=== PATIENT | male | born 1970 ===

== ENCOUNTER 2019-04-14 08:30 | Emergency (ER) | payer BC ==
[2019-04-14] MEDS ORDERED: Ketorolac 60 MG/2 ML SDV IM ONE (09:07)
--- NOTE | 2019-04-14 09:10 | EDM.PDOC ---
ED HPI GENERAL MEDICAL PROBLEM - General Chief Complaint: Back Pain or Injury Stated Complaint: CHEST PAIN/LOWER BACK PAIN Time Seen by Provider: 04/14/19 08:55 - History of Present Illness INITIAL COMMENTS - FREE TEXT/NARRATIVE: HISTORY AND PHYSICAL: History of present illness: Patient 49-year-old white male history of chronic back pain his head spinal surgery prior presents with concern of back pain with associated spasm he states at times it hurts to take a deep breath due to the spasm and pain of his back. He denies numbness weakness incontinence or retention bowel or bladder Review of systems: As per history of present illness and below otherwise all systems reviewed and negative. Past medical history: As per history of present illness and as reviewed below otherwise noncontributory. Surgical history: As per history of present illness and as reviewed below otherwise noncontributory. Social history: No reported history of drug or alcohol abuse. Family history: As per history of present illness and as reviewed below otherwise noncontributory. Physical exam: HEENT: Atraumatic, normocephalic, pupils reactive, negative for conjunctival pallor or scleral icterus, mucous membranes moist, throat clear, neck supple, nontender, trachea midline. Lungs: Clear to auscultation, breath sounds equal bilaterally, chest nontender. Heart: S1S2, regular, negative for clicks, rubs, or JVD. Abdomen: Soft, nondistended, nontender. Negative for masses or hepatosplenomegaly. Negative for costovertebral tenderness. Pelvis: Stable nontender. Genitourinary: Deferred. Rectal: Deferred. Extremities: Atraumatic, negative for cords or calf pain. Neurovascular unremarkable. Neuro: Awake, alert, oriented. Cranial nerves II through XII unremarkable. Cerebellum unremarkable. Motor and sensory unremarkable throughout. Exam nonfocal. Back: Patient is a mild paravertebral tenderness and spasm the region of the lumbar spine is no vertebral body or point tenderness motor and sensory are normal deep tendon reflexes are normal Diagnostics: Chest x-ray UA x-ray lumbosacral spine Therapeutics: Toradol 60 mg IM Impression: #1 chronic back pain with acute exacerbation Definitive disposition and diagnosis as appropriate pending reevaluation and review of above. L lower ribs Pain Score (Numeric/FACES): 8 - Related Data Allergies Allergy/AdvReac Type Severity Reaction Status Date / Time codeine Allergy Fainting Verified 12/08/16 13:48 [facility] Home Meds: Home Meds Methocarbamol 750 mg PO Q6H 04/14/19 [History] Zolpidem [Ambien] 1 tab PO DAILY 04/14/19 [History] oxyCODONE HCl [Oxycontin] 20 mg PO TID 04/14/19 [History] Past Medical History Gastrointestinal History: Reports: Other (See Below) Other Gastrointestinal History: Lap band surgery for weight loss Musculoskeletal History: Reports: Back Pain, Chronic Psychiatric History: Reports: Anxiety, Depression - Infectious Disease History Infectious Disease History: Reports: Other (See Below) Other Infectious Disease History: 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 ED EXAM, GENERAL - Physical Exam Exam: See Below (See dictation) Course - Vital Signs Last Recorded V/S: Last Vital Signs Temp 35.8 C 04/14/19 08:42 Pulse 97 04/14/19 08:42 Resp 18 04/14/19 08:42 BP 140/89 04/14/19 08:42 Pulse Ox 98 04/14/19 08:42 - Orders/Labs/Meds Orders: Active Orders 24 hr Category Date Time Status Chest 2V [CR] Stat Exams 04/14/19 08:41 Ordered Lumbar Spine 2 or 3V [CR] Stat Exams 04/14/19 09:06 Ordered UA RFX MUSHTAQ AND CULT IF INDIC [URIN] Stat Lab 04/14/19 08:50 Received Ketorolac [Toradol] Med 04/14/19 09:07 Once 60 mg IM ONETIME ONE Medication Orders Ketorolac Tromethamine (Toradol) 60 mg IM ONETIME ONE Stop: 04/14/19 09:08 Meds: Medications Generic Name Dose Route Start Last Admin Trade Name Freq PRN Reason Stop Dose Admin Ketorolac Tromethamine 60 mg 04/14/19 09:07 Toradol IM 04/14/19 09:08 ONETIME ONE Departure - Departure Time of Disposition: 09:09 Disposition: Home, Self-Care 01 Condition: Good Clinical Impression: Back pain - Discharge Information Referrals: PCP,None [Primary Care Provider] - Additional Instructions: The following information is given to patients seen in the emergency department who are being discharged to home. This information is to outline your options for follow-up care. We provide all patients seen in our emergency department with a follow-up referral. The need for follow-up, as well as the timing and circumstances, are variable depending upon the specifics of your emergency department visit. If you don't have a primary care physician on staff, we will provide you with a referral. We always advise you to contact your personal physician following an emergency department visit to inform them of the circumstance of the visit and for follow-up with them and/or the need for any referrals to a consulting specialist. The emergency department will also refer you to a specialist when appropriate. This referral assures that you have the opportunity for followup care with a specialist. All of these measure are taken in an effort to provide you with optimal care, which includes your followup. Under all circumstances we always encourage you to contact your private physician who remains a resource for coordinating your care. When calling for followup care, please make the office aware that this follow-up is from your recent emergency room visit. If for any reason you are refused follow-up, please contact the [facility] emergency department at and asked to speak to the emergency department charge nurse. [facility] [address] [place] [id number] Diclofenac Flexeril Medrol as prescribed follow-up clinic above: Schedule routine appointment and return as needed as discussed - My Orders Last 24 Hours: My Active Orders 04/14/19 08:41 Chest 2V [CR] Stat 04/14/19 08:50 UA RFX MUSHTAQ AND CULT IF INDIC [URIN] Stat 04/14/19 09:06 Lumbar Spine 2 or 3V [CR] Stat 04/14/19 09:07 Ketorolac [Toradol] 60 mg IM ONETIME ONE - Assessment/Plan Last 24 Hours: My Active Orders 04/14/19 08:41 Chest 2V [CR] Stat 04/14/19 08:50 UA RFX MUSHTAQ AND CULT IF INDIC [URIN] Stat 04/14/19 09:06 Lumbar Spine 2 or 3V [CR] Stat 04/14/19 09:07 Ketorolac [Toradol] 60 mg IM ONETIME ONE
--- NOTE | 2019-04-14 10:24 | CR ---
Indication: left lower rib pain with inspiration Technique: Chest 2 views Comparison: None Findings: Cardiovascular and mediastinum: Cardiac silhouette is upper limits of normal. Lungs and pleural spaces: Lungs are clear. No sign of infiltrate or mass. No sign of pleural effusion. No pneumothorax. Bones and soft tissues: Postoperative changes to the thoracolumbar junction. No fracture. Impression: No acute or significant findings. Dictated by Jacob Barraza MD @ Apr 14 2019 10:21AM Signed by Dr. Jacob Barraza @ Apr 14 2019 10:22AM
--- NOTE | 2019-04-14 10:26 | CR ---
INDICATION: Back pain TECHNIQUE: 3-view lumbar spine. COMPARISON: none FINDINGS: Chronic compression deformity L1. Intact hardware about the posterior fusion from T10 through L3. No acute fracture. Mild vascular calcifications. No spondylolisthesis. IMPRESSION: Chronic compression fracture deformity L1 with intact hardware about posterior fusion. No acute fracture Dictated by Jacob Barraza MD @ Apr 14 2019 10:22AM Signed by Dr. Jacob Barraza @ Apr 14 2019 10:24AM
[2019-04-14 10:41] VITALS: BP 134/89
== END 2019-04-14 10:39 | disposition home or self-care (01) ==
LOC: MW.ED 08:30
DX: G89.29 Other chronic pain (principal); M54.5 Low back pain; F41.9 Anxiety disorder, unspecified; F32.9 Major depressive disorder, single episode, unspecified; Z88.5 Allergy status to narcotic agent; Z79.899 Other long term (current) drug therapy
CPT/HCPCS: 71046; 72100; 81003; 96372; 99283; J1885